=== PATIENT | female | born 1955 | race Caucasian/White ===

== ENCOUNTER → 2017-08-16 07:43 | Outpatient (CLI) | payer OTHER ==
[2009-05-19 07:08] VITALS: BMI 31.8
== END | disposition home or self-care (01) ==
LOC: D.CT 07:43
DX: R06.02 Shortness of breath (principal)

== ENCOUNTER → 2017-11-10 12:49 | Outpatient (CLI) | payer OTHER ==
[2009-05-19 07:08] VITALS: BMI 31.8
== END | disposition home or self-care (01) ==
LOC: D.RT 12:49
DX: J45.991 Cough variant asthma (principal)

== ENCOUNTER → 2018-01-30 16:35 | Outpatient (CLI) | payer OTHER ==
[2009-05-19 07:08] VITALS: BMI 31.8
== END | disposition home or self-care (01) ==
LOC: D.CT 16:35
DX: I26.99 Other pulmonary embolism without acute cor pulmonale (principal)